=== PATIENT | female | born 1940 | race Caucasian/White ===

== ENCOUNTER 2019-07-30 05:44 | Inpatient (IN) | payer OTHER, BC ==
[~2019-07-30] VITALS: Ht 165.1 cm; Wt 54.0 kg
[2019-07-30 05:50] VITALS: Ht 165.1 cm; Wt 54.0 kg
[2019-07-30 06:19] LABS: PLATELET COUNT 299 x10^3mcL (130-400)
[2019-07-30 06:21] LABS: BASOPHIL % 2.9 % (0-2); RED CELL DISTRIBUTION WIDTH 14.7 % (11.5-14.5)
[2019-07-30 07:48] LABS: ALBUMIN 3.8 g/dL (3.4-5.0); ALKALINE PHOSPHATASE 67 U/L (46-116); ALT/SGPT 22 U/L (14-59); AST/SGOT 17 U/L (15-37); BILIRUBIN TOTAL 0.4 mg/dL (0.20-1.00); CALCIUM 8.6 mg/dL (8.5-10.1); CHLORIDE SERUM 104 mmol/L (98-107); CREATININE SERUM 0.8 mg/dL (0.6-1.0); GLUCOSE SERUM 80 mg/dL (74-106); POTASSIUM SERUM 3.9 mmol/L (3.5-5.1); SODIUM SERUM 142 mmol/L (136-145); TOTAL PROTEIN, SERUM 7.5 g/dL (6.4-8.2)
[2019-07-30] MEDS ORDERED: ABILIFY5 M1 (08:39)
[2019-07-30] MEDS ORDERED: TOPROL XL25 MG PO ×2 (08:40)
[2019-07-30] MEDS ORDERED: KAPVAY0.1 MG PO (08:40)
[2019-07-30] MEDS ORDERED: COZAAR100 MG PO (08:41)
[2019-07-30] MEDS ORDERED: CARTIA XT240 M1 PO (08:41)
[2019-07-30] MEDS ORDERED: TERAZOSIN HCL2 MG PO (08:42)
[2019-07-30] MEDS ORDERED: LEVOTHYROXINE0.05 M2 PO (08:42)
[2019-07-30] MEDS ORDERED: MECLIZINE HYD12.5 MG PO (08:43)
[2019-07-30] MEDS ORDERED: METFORMIN ER500 M1 PO (08:43)
[2019-07-30] MEDS ORDERED: CYTOMEL5 MCG PO (08:43)
[2019-07-30] MEDS ORDERED: SEROQUEL25 MG PO (08:44)
[2019-07-30] MEDS ORDERED: ABILIFY2 M1 PO (08:45)
[2019-07-30] MEDS ORDERED: VITAMIN C100 M2 (08:47)
[2019-07-30] MEDS ORDERED: VITAMIN B122500 MC2 (08:47)
[2019-07-30] MEDS ORDERED: VITAMIN D250 MCG (08:47)
[2019-07-30 10:19] LABS: MAGNESIUM 2.1 mg/dL (1.8-2.4)
[2019-07-30 10:25] LABS: T3 TOTAL 1.05 ng/mL
[2019-07-30 10:56] LABS: FREE T4 0.81 ng/dL (0.76-1.46); FREE THYROXINE INDEX 2.3 ug/dL (1.4-4.5); T4(THYROXINE) 6.1 ug/dL (4.7-13.3)
[2019-07-30 14:22] VITALS: BP 180/92
[2019-07-30 17:05] VITALS: BP 143/82
[2019-07-30 20:28] VITALS: BP 169/81
[2019-07-31 05:47] VITALS: BP 163/77
[2019-07-31 06:21] LABS: BASOPHIL % 0.8 % (0-2); PLATELET COUNT 272 x10^3mcL (130-400); RED CELL DISTRIBUTION WIDTH 14.3 % (11.5-14.5)
[2019-07-31 06:43] LABS: CALCIUM 8.8 mg/dL (8.5-10.1); CHLORIDE SERUM 102 mmol/L (98-107); CREATININE SERUM 0.9 mg/dL (0.6-1.0); GLUCOSE SERUM 89 mg/dL (74-106); SODIUM SERUM 139 mmol/L (136-145)
[2019-07-31 08:47] VITALS: BP 146/68
[2019-07-31 12:35] VITALS: BP 119/66
[2019-07-31 17:22] VITALS: BP 110/59
[2019-07-31 20:17] VITALS: BP 147/76
[2019-08-01 05:50] VITALS: BP 133/67
[2019-08-01 06:40] LABS: CALCIUM 8.5 mg/dL (8.5-10.1); CARBON DIOXIDE 27.9 mmol/L (21-32); CHLORIDE SERUM 103 mmol/L (98-107); GLUCOSE SERUM 90 mg/dL (74-106); POTASSIUM SERUM 4.2 mmol/L (3.5-5.1); SODIUM SERUM 137 mmol/L (136-145)
[2019-08-01 06:49] LABS: BASOPHIL % 0.5 % (0-2); PLATELET COUNT 251 x10^3mcL (130-400); RED CELL DISTRIBUTION WIDTH 14.3 % (11.5-14.5)
[2019-08-01 09:22] VITALS: BP 142/78
[2019-08-01] MEDS ORDERED: LEVAQUIN750 MG PO (11:18)
[2019-08-01] MEDS ORDERED: ABILIFY5 M1 PO (11:24)
[2019-08-01 12:06] VITALS: BP 142/78
== END 2019-08-01 15:23 | disposition home health service (06) | DRG 194 ==
LOC: ED 05:44 → MU 09:13 → DU 09:13 → MU 07-31 11:32
PROVIDERS: Emergency Medicine; ADMIT Internal Medicine
DX: J18.9 Pneumonia, unspecified organism (principal); F23 Brief psychotic disorder; Z68.1 Body mass index [BMI] 19.9 or less, adult; F32.9 Major depressive disorder, single episode, unspecified; J44.9 Chronic obstructive pulmonary disease, unspecified; R26.81 Unsteadiness on feet; I10 Essential (primary) hypertension; E03.9 Hypothyroidism, unspecified; R73.03 Prediabetes; Z79.84 Long term (current) use of oral hypoglycemic drugs; Z98.2 Presence of cerebrospinal fluid drainage device; Z85.3 Personal history of malignant neoplasm of breast; Z90.11 Acquired absence of right breast and nipple; Z87.891 Personal history of nicotine dependence
CPT/HCPCS: 82962; 83880; 84439; 97112-GP; 97116-GP; 97530-GP; G0378; J1885; J1956; J3010; J7040; J8597; Q0092